=== PATIENT | female | born 1985 | race Two or more races ===

== ENCOUNTER 2024-03-30 10:51 | Emergency (ER) | payer MEDICAID, OTHER ==
[~2024-03-30] VITALS: Ht 167.6 cm; Wt 65.9 kg
[2024-03-30 11:36] VITALS: BP 110/77; PULSE 63; RESP 14; TEMP 97.9; O2SAT 100
[2024-03-30] MEDS ORDERED: NAPR-746 PO (11:56)
== END 2024-03-30 12:23 | disposition home or self-care (01) ==
LOC: ER 10:51
DX: S92.424A Nondisplaced fracture of distal phalanx of right great toe, initial encounter for closed fracture (principal); Z79.899 Other long term (current) drug therapy; W01.0XXA Fall on same level from slipping, tripping and stumbling without subsequent striking against object, initial encounter; Y93.89 Activity, other specified; Y92.89 Other specified places as the place of occurrence of the external cause; Y99.8 Other external cause status

== ENCOUNTER 2024-10-20 10:18 | Emergency (ER) | payer MEDICAID ==
[~2024-10-20] VITALS: Ht 157.5 cm; Wt 67.4 kg
[~2024-10-20 10:18] MED LIST: NAPR-746 PO
[2024-10-20 10:39] VITALS: BP 132/73; PULSE 78; RESP 16; TEMP 98.4; O2SAT 98
[2024-10-20] MEDS ORDERED: CLIN1AER5 EX (11:59)
[2024-10-20] MEDS ORDERED: [UNRECOGNIZED DRUG - CODE] EX (11:59)
--- NOTE | 2024-10-20 12:00 | ED.PDOC ---
History of Present Illness(SKN HPI Comments 39-year-old presents for a diffuse rash to the bilateral cheeks. Started three days ago. Possible cause new lotion. Denies that the rash is painful, just itchy Denies ever having this before Patient denies any fever, cough, difficulty swallowing, or shortness of breath Denies fever chills night sweats nausea vomiting diarrhea Denies persistent loss of appetite nor unintentional weight loss over the past 3 months Denies history of STI Denies cough and cold-like symptoms Denies recent travel Denies sick contact with similar rash Denies noticing any insects Denies bruising bleeding anywhere Denies chronic skin issues or family history of skin issues Chief Complaint: Allergic Reaction Time Seen by MD: 10:37 Primary Care Provider: NONE History of Present Illness: Nurses Notes, Medications, Allergies Allergies: Coded Allergies: NO KNOWN ALLERGIES (Unverified , 03/30/24) Home Meds Active Scripts Benzoyl Peroxide (Benzoyl Peroxide Wash) 5 % Liq, 1 APPLIC EX BID for 30 Days, #60 GRAMS 0 Refills Prov:RACHAEL RODRÍGUEZ NP 10/20/24 Clindamycin Phosphate (Topical (Clindamycin Phosphate) 1 % Aer, 1 APPLIC EX BID for 10 Days, #60 GRAMS 0 Refills Prov:RACHAEL RODRÍGUEZ NP 10/20/24 Naproxen (Naproxen) 500 Mg Tab, 500 MG PO BIDPC for 14 Days, #28 TAB 0 Refills Prov:RACHAEL RODRÍGUEZ NP 03/30/24 Information Source: Patient Mode of Arrival: Ambulatory Past Medical History PAST MEDICAL HISTORY: Denies Surgical History: Denies all surgeries BED MAKER History: No Pertinent BED MAKER History Family History Family History: Reviewed,noncontributory to illness Social History Smoker: Non-Smoker Alcohol: Denies ETOH Use Drugs: Denies Drug Use All Other Systems: Reviewed and Negative (per hpi) Physical Exam General Appearance: No Apparent Distress, Normal HEENT: Normal ENT Inspection, Pharynx Normal, TMs Normal Neck: Full Range of Motion, Non-Tender, Normal, Normal Inspection Respiratory: Chest Non-Tender, Lungs Clear, No Accessory Muscle Use, No Respiratory Distress, Normal Breath Sounds Cardiovascular: No Murmur, No Gallop, Regular Rate/Rhythm Breast Exam: Deferred Gastrointestinal: No Organomegaly, Non Tender, No Pulsatile Mass, Normal Bowel Sounds, Soft Genitalia: Deferred Pelvic: Deferred Rectal: Deferred Extremities: No calf tenderness, Normal capillary refill, Normal inspection, Normal range of motion, Non-tender, No pedal edema Musculoskeletal : Apperance: Normal Neurologic: Alert, associate chemist II-XII nml as Tested, No Motor Deficits, Normal Affect, Normal Mood, No Sensory Deficits Cerebellar Function: Normal Reflexes: Normal Skin: Dry, Normal Color, Rash (papular pulstules to the face. non ttp. ), Warm Lymphatic: No Adenopathy Was a procedure done? Was a procedure done?: No Differential Diagnosis (INTG) Differential Diagnosis: Viral exanthema X-Ray, Labs, Meds, VS Vital Signs Date Time Temp Pulse Resp B/P (MAP) Pulse Ox O2 Delivery O2 Flow Rate FiO2 10/20/24 10:39 98.4 78 16 132/73 (92) 98 98.4 10/20/24 10:39 78 16 98 Room Air 10/20/24 10:35 98.4 78 16 132/73 (92) 98 98.4 X-Ray, Labs, Meds, VS Comment Patient presents with inflamed papules and pustules with surrounding erythema consistent with folliculitis Lesions not amendable to I&D, no fluctance noted No streaking or lympathic spread noted on exam Given the superficial appearance of the lesions, will prescribe clinda topical Plan: -Daily washing of the area with antimicrobial cleanser -Abstain from touching the lesions with dirty hands -Apply warm compresses 3 times per day -If no improvement follow up Time of 1ST Reevaluation: 11:45 Reevaluation 1ST: Improved Patient Education/Counseling: Diagnosis, Treatment Family Education/Counseling: Diagnosis, Treatment Departure 1 Departure Time of Disposition: 11:55 Impression: Primary Impression: Folliculitis Disposition: 01 HOME / SELF CARE / HOMELESS Condition: Fair e-Prescriptions Benzoyl Peroxide (Benzoyl Peroxide Wash) 5 % Liq 1 APPLIC EX BID for 30 Days, #60 GRAMS 0 Refills Prov: RACHAEL RODRÍGUEZ DISABILITIES SERVICES OFFICER 10/20/24 Clindamycin Phosphate (Topical (Clindamycin Phosphate) 1 % Aer 1 APPLIC EX BID for 10 Days, #60 GRAMS 0 Refills Prov: RACHAEL RODRÍGUEZ DISABILITIES SERVICES OFFICER 10/20/24 Critical Care Note Critical Care Time?: No Stability Stability form required: No Heart Score Heart Score: Heart Score Response (Comments) Value History N/A 0 EKG N/A 0 Age N/A 0 Risk Factors N/A 0 Troponin N/A 0 Total 0 RACHAEL RODRÍGUEZ NP Oct 20, 2024 12:00
== END 2024-10-20 12:10 | disposition home or self-care (01) ==
LOC: ER 10:18
DX: L73.9 Follicular disorder, unspecified (principal)